=== PATIENT | male | born 1950 | race Caucasian/White ===

== ENCOUNTER 2020-04-22 11:20 | Inpatient (IN) | payer MEDICARE, OTHER ==
[~2020-04-22] VITALS: Ht 182.9 cm; Wt 87.9 kg
[~2020-04-22 11:20] MED LIST: ACET325T9 PO; BENZ0.5T32 PO; BUPR150T11 PO; CITA20TA6 PO; DIPH25CA58 PO; DOCU250C8 PO; GABA-585 PO; LEVO25TA4 PO; LORA0.5T PO; MAGN400O7 PO; OMEG1CAP6 PO; RISP3TAB3 PO; SIMV20TA18 PO
[2020-04-22 11:37] LABS: BASE EXCESS ABG 2 mmol/L (-3-3); HCO3 ABG 27 mmol/L (21-28); PCO2 ABG 47 mmHg (35-46); PO2 ABG 65 mmHg (65-108); SAT O2 ABG 93 % (92-99)
[2020-04-22 11:44] LABS: BASO # 0.1 x10^3/uL (0.0-0.2); BASO % 1 % (0-3); EOS # 0.5 x10^3/uL (0.0-0.7); EOS % 7 % (0-3); HEMATOCRIT 38.9 % (39.0-53.0); HEMOGLOBIN 13.1 g/dL (13.0-17.5); LYMPH # 0.8 x10^3/uL (1.0-4.8); LYMPH % 11 % (24-48); MEAN CORPUSCULAR HEMOGLOBIN 31 pg (25-35); MEAN CORPUSCULAR HGB CONC 34 g/dL (31-37); MEAN CORPUSCULAR VOLUME 91 fL (79-100); MONO # 0.6 x10^3/uL (0.0-1.1); MONO % 9 % (0-9); NEUT # 4.9 x10^3/uL (1.8-7.7); NEUT % 72 % (31-73); PLATELET COUNT 220 x10^3/uL (140-400); RED BLOOD COUNT 4.26 x10^6/uL (4.30-5.70); WHITE BLOOD COUNT 6.8 x10^3/uL (4.0-11.0)
[2020-04-22 11:53] LABS: CALCIUM 8.5 mg/dL (8.5-10.1); CREATININE 1.1 mg/dL (0.7-1.3); GFR 65.8; POTASSIUM 3.9 mmol/L (3.5-5.1)
--- NOTE | 2020-04-22 11:53 | RAD ---
EXAM: CT Head without IV contrast INDICATION: Reason: found unresponsive / Spl. Instructions: / History: TECHNIQUE: Multi-detector row CT images were obtained of the head without the use of IV contrast. All CT scans performed at this facility utilize dose optimization techniques as appropriate to the exam, including the following: Automated exposure control and adjustment of the mA and/or KV according to patient size (this includes techniques or standardized protocols for targeted exams where dose is indication/reason for exam). COMPARISON: None FINDINGS: BRAIN PARENCHYMA: No evidence of acute intraparenchymal hemorrhage or infarct. Generalized parenchymal volume loss and white matter low density compatible with chronic ischemic microvascular changes present. VENTRICLES & EXTRA-AXIAL SPACES: Ventricles are within normal limits. Basilar cisterns are patent. No pathologic extra-axial fluid collection or mass. ORBITS: Orbital contents are unremarkable. SINUSES: Visualized paranasal sinuses and mastoid air cells show polyp or mucous retention cyst in the left maxillary antrum but otherwise are well aerated.. OSSEOUS & SOFT TISSUES: Calvarium and skull base are intact. IMPRESSION: No acute intracranial pathology FOR INTERNAL CODING PURPOSES Critical result: Findings discussed with BRIDGETTE DANIEL at 04/22/2020 11:49 AM. RESULT CODE: (C) Electronically signed by: Aida Melgar MD (04/22/2020 11:50 AM) [id number]
[2020-04-22 11:54] LABS: PROTHROMBIN TIME PATIENT 12.8 SEC (11.7-14.0)
--- NOTE | 2020-04-22 11:57 | PHYS DOC ---
Past Medical History Past Medical History: COPD, High Cholesterol, Hypertension, Hypothyroid, Schizophrenia Past Surgical History: No Surgical History Additional Past Surgical Histo: HERNIA REPAIR Smoking Status: Unknown if ever smoked Alcohol Use: None Drug Use: None General Adult EDM: Chief Complaint: ALTERED MENTAL STATUS HPI: HPI: Patient is a 70 year old male who was brought here from residential due to altered mental status. Per residential report patient was doing okay this morning, they gave him his morning medication at 8 AM. They check on him later this afternoon and found him unresponsive in his bed but vomited on his chest. EMS were called, they gave him several doses of Narcan but patient did not respond. Patient was not responsive to verbal command however he was able to protect his airway with oxygen saturation above 98% on room air. There is no report of fever or cough. Patient was given BuSpar Celexa, Neurontin, lorazepam ,risperidone. Upon arrival to ER patient was unresponsive to verbal or painful stimuli, however he was able to protect his airway, his oxygen saturation about 96% on room air. Review of Systems: Review of Systems: Was not able to obtain. Due to condition Heart Score: Risk Factors: Risk Factors: DM, Current or recent (<one month) smoker, HTN, HLP, family history of CAD, obesity. Risk Scores: Score 0 - 3: 2.5% MACE over next 6 weeks - Discharge Home Score 4 - 6: 20.3% MACE over next 6 weeks - Admit for Clinical Observation Score 7 - 10: 72.7% MACE over next 6 weeks - Early Invasive Strategies Allergies: Allergies: Allergies Coded Allergies Type Severity Reaction Last Updated Verified Penicillins Allergy Intermediate 09/09/17 Yes Physical Exam: PE: Constitutional: Well developed, well nourished, unresponsive, vomitus materials around mouth and chest area. HENT: Normocephalic, atraumatic, bilateral external ears normal, food particles inside oral cavity. Eyes: PERRLA, EOMI, conjunctiva normal, no discharge. [] Neck: Normal range of motion, no tenderness, supple, no stridor. [] Cardiovascular:Heart rate regular rhythm, no murmur [] Lungs & Thorax: Bilateral breath sounds clear to auscultation [] Abdomen: Bowel sounds normal, soft, no tenderness, no masses, no pulsatile masses. [] Skin: Warm, dry, no erythema, no rash. [] Back: No tenderness, no CVA tenderness. [] Extremities: No tenderness, no cyanosis, no clubbing, ROM intact, no edema. [] Neurologic: somnolent, unresponsive to verbal or painful stimuli. Psychologic: not able to evaluate due to condition. Current Patient Data: Labs: Laboratory Tests Test 04/22/20 11:30 White Blood Count 6.8 x10^3/uL (4.0-11.0) Red Blood Count 4.26 x10^6/uL (4.30-5.70) L Hemoglobin 13.1 g/dL (13.0-17.5) Hematocrit 38.9 % (39.0-53.0) L Mean Corpuscular Volume 91 fL (79-100) Mean Corpuscular Hemoglobin 31 pg (25-35) Mean Corpuscular Hemoglobin Concent 34 g/dL (31-37) Red Cell Distribution Width 13.0 % (11.5-14.5) Platelet Count 220 x10^3/uL (140-400) Neutrophils (%) (Auto) 72 % (31-73) Lymphocytes (%) (Auto) 11 % (24-48) L Monocytes (%) (Auto) 9 % (0-9) Eosinophils (%) (Auto) 7 % (0-3) H Basophils (%) (Auto) 1 % (0-3) Neutrophils # (Auto) 4.9 x10^3/uL (1.8-7.7) Lymphocytes # (Auto) 0.8 x10^3/uL (1.0-4.8) L Monocytes # (Auto) 0.6 x10^3/uL (0.0-1.1) Eosinophils # (Auto) 0.5 x10^3/uL (0.0-0.7) Basophils # (Auto) 0.1 x10^3/uL (0.0-0.2) Prothrombin Time 12.8 SEC (11.7-14.0) Prothrombin Time INR 1.0 (0.8-1.1) Activated Partial Thromboplast Time 29 SEC (24-38) Laboratory Tests 04/22/20 11:30 EKG: EKG: EKG was done at 1142, heart rate of 90 bpm, normal sinus rhythm, no ST segment elevation, no ectopy, normal conduction. Radiology/Procedures: Radiology/Procedures: [facility] [address] [place] [address] IMAGING REPORT Signed PATIENT: VIKKI LEE ACCOUNT: [id number] : 1950 LOCATION: ER AGE: 70 SEX: M EXAM STATUS: PRE ER ORD. PHYSICIAN: BRIDGETTE DANIEL DO REASON: found unresponsive PROCEDURE: CT CODE STROKE HEAD WO EXAM: CT Head without IV contrast INDICATION: Reason: found unresponsive / Spl. Instructions: / History: TECHNIQUE: Multi-detector row CT images were obtained of the head without the use of IV contrast. All CT scans performed at this facility utilize dose optimization techniques as appropriate to the exam, including the following: Automated exposure control and adjustment of the mA and/or KV according to patient size (this includes techniques or standardized protocols for targeted exams where dose is indication/reason for exam). COMPARISON: None FINDINGS: BRAIN PARENCHYMA: No evidence of acute intraparenchymal hemorrhage or infarct. Generalized parenchymal volume loss and white matter low density compatible with chronic ischemic microvascular changes present. VENTRICLES & EXTRA-AXIAL SPACES: Ventricles are within normal limits. Basilar cisterns are patent. No pathologic extra-axial fluid collection or mass. ORBITS: Orbital contents are unremarkable. SINUSES: Visualized paranasal sinuses and mastoid air cells show polyp or mucous retention cyst in the left maxillary antrum but otherwise are well aerated.. OSSEOUS & SOFT TISSUES: Calvarium and skull base are intact. IMPRESSION: No acute intracranial pathology FOR INTERNAL CODING PURPOSES Critical result: Findings discussed with BRIDGETTE DANIEL at 04/22/2020 11:49 AM. RESULT CODE: (C) Electronically signed by: Carson Melgar MD (04/22/2020 11:50 AM) [id number] DICTATED and SIGNED BY: CARSON MELGAR MD DATE: 04/22/20 1150 [facility] [address] [place] [address] IMAGING REPORT Signed PATIENT: VIKKI LEE ACCOUNT: [id number] : 1950 LOCATION: ER AGE: 70 SEX: M EXAM STATUS: REG ER ORD. PHYSICIAN: BRIDGETTE DANIEL DO REASON: aspiration PROCEDURE: CHEST AP ONLY AP chest. HISTORY: Stroke, found unresponsive AP view was taken of the chest. Heart is normal in size. The aorta is mildly tortuous. Patient's not taken a deep inspiration. There is no effusion. There are no confluent infiltrates. IMPRESSION: 1. No acute infiltrates. Electronically signed by: Chilango Parekh MD (04/22/2020 12:23 PM) [id number] DICTATED and SIGNED BY: CHILANGO PAREKH MD DATE: 04/22/20 1223 Course & Med Decision Making: Course & Med Decision Making Pertinent Labs and Imaging studies reviewed. (See chart for details) Patient is a 70-year-old male who was sent here from residential due to altered mental status, it is suspected that patient accidentally overdosed on his medication. At the time of admission, patient became more awake alert and oriented to person. Dragon Disclaimer: Dragon Disclaimer: This electronic medical record was generated, in whole or in part, using a voice recognition dictation system. Departure Departure Impression: Primary Impression: AMS (altered mental status) Additional Impressions: UTI (urinary tract infection) Person under investigation for COVID-19 Accidental drug overdose Disposition: ADMITTED INPATIENT Admitting Physician: RANDEE (DR. GÓMEZ) Condition: IMPROVED Referrals: ANGELITA HUYNH (PCP) Justicifation of Admission Dx: Justifications for Admission: Justification of Admission Dx: Yes Altered Mental Status: Altered Mental Status BRIDGETTE DANIEL DO Apr 22, 2020 11:57
[2020-04-22 12:02] LABS: FIO2 ABG 21
[2020-04-22 12:06] LABS: FREE T4 1.12 ng/dL (0.76-1.46); THYROID STIM HORMONE (TSH) 1.859 uIU/mL (0.358-3.74)
[2020-04-22 12:08] LABS: ALBUMIN 3.2 g/dL (3.4-5.0); ALBUMIN/GLOBULIN RATIO 0.9 (1.0-1.7); MAGNESIUM 2.3 mg/dL (1.8-2.4); TOTAL BILIRUBIN 0.2 mg/dL (0.2-1.0); TOTAL PROTEIN 6.7 g/dL (6.4-8.2)
--- NOTE | 2020-04-22 12:14 | EKG ---
[facility] [address] [place] [address] Test Date: 2020-04-22 Test Time: 11:42:20 Pat Name: VIKKI LEE Department: Room: Gender: M [employer] Work[employer]: : 1950 Requested By: BRIDGETTE DANIEL Order Number: [id number] Reading MD: Measurements Intervals [place] Rate: 93 P: -17 IA: 186 QRS: -4 QRSD: 92 T: 42 QT: 358 QTc: 448 Interpretive Statements SINUS RHYTHM LEFTWARD AXIS NO SPECIFIC ECG ABNORMALITIES RI6.02 No previous ECG available for comparison
--- NOTE | 2020-04-22 12:26 | RAD ---
AP chest. HISTORY: Stroke, found unresponsive AP view was taken of the chest. Heart is normal in size. The aorta is mildly tortuous. Patient's not taken a deep inspiration. There is no effusion. There are no confluent infiltrates. IMPRESSION: 1. No acute infiltrates. Electronically signed by: Chilango Parekh MD (04/22/2020 12:23 PM) [id number]
[2020-04-22 12:46] LABS: AMPHETAMINE/METHAMPHETAMINE NEG (NEG); BARBITURATES NEG (NEG); BENZODIAZEPINES NEG (NEG); CANNABINOIDS NEG (NEG); COCAINE NEG (NEG); METHADONE NEG (NEG); OPIATES NEG (NEG); PHENCYCLIDINE NEG (NEG)
[2020-04-22 13:01] LABS: BILIRUBIN,URINE NEGATIVE (NEG); CLARITY,URINE CLOUDY; COLOR,URINE YELLOW; NITRITE,URINE POSITIVE (NEG); PROTEIN,URINE NEGATIVE (NEG-TRACE); UROBILINOGEN,URINE 0.2 mg/dL (0.2 mg/dL)
[2020-04-22 13:09] LABS: WBC,URINE TNTC /HPF (0-4)
[2020-04-22 13:10] LABS: AMORPHOUS SEDIMENT,UR PRESENT /HPF; BACTERIA,URINE FEW /HPF (0-FEW); SQUAMOUS EPITHELIAL CELL,UR OCC /LPF
--- NOTE | 2020-04-22 14:06 | PDOC1 ---
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 EMS noted pinpoint pupils on arrival, ems states administering 4mg intranasal narcan. Per nursing staff he took his morning medications at 8 am that included, resperidal, lorazepam, citalopram, and buproprion. Labs with no significant findings save for positive leukocyte esterase and positive nitrates in his urine. ABG with pH 7.38, PCO2 47, PO2 65 on room air. INR 1, PTT 29, TSH 1.85, albumin 3.2, mag 2.3, lactate 0.7, troponin 0, WBC 6.8, Hb 13.1, platelets 220, NA 138, K3.9, BUN 13, CR 1.1, glucose 121, LFTs within normal limits. UDS negative CT head and chest x-ray with no acute abnormalities EKG with rate 90 bpm, normal sinus rhythm, no ST segment elevation, no ectopy, normal conduction On my interview he is asleep but easily aroused. He knows he is in the hospital and is only oriented to person. He is asking why he is here. Asking if he can have something to eat. He does not recall vomiting. He denies any cough shortness of breath or chest pain. He does note some pain on initiating urination. 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. Due to concerns for COVID-19 nasal PCR swab was obtained in the ED. Admitted for further treatment. Past Medical History Cardiovascular: HTN, Hyperlipidemia Pulmonary: COPD CENTRAL NERVOUS SYSTEM: Other Psych: Schizophrenia Infectious disease: Other Renal/: Other Endocrine: Hypothyroidism Past Surgical History Past Surgical History: Hernia Repair Family History Family History Reviewed, he does not recall, thinks his mother had depression Family History: Other Social History Smoke: No ALCOHOL: none Drugs: None Current Medications Current Medications Current Medications Levofloxacin/ Dextrose 150 ml @ 100 mls/hr 1X ONCE IV Last administered on 04/22/20at 13:10; Start 04/22/20 at 12:30; Stop 04/22/20 at 13:59; Status DC Active Scripts Active Reported Tylenol (Acetaminophen) 325 Mg Tablet 2 Tab PO PRN Q6HRS PRN Simvastatin 20 Mg Tablet 1 Tab PO QHS Risperidone 3 Mg Tablet 1 Tab PO BID Milk Of Magnesia (Magnesium Hydroxide) 400 Mg/5 Ml Oral.susp 400 Mg PO DAILY PRN Lorazepam 0.5 Mg Tablet 1 Tab PO BID Levothyroxine Sodium 25 Mcg Tablet 1 Tab PO HS Gabapentin 100 Mg Capsule 200 Mg PO TID Fish Oil 1,000 Mg Capsule ([place]-3 Fatty Acids/Fish Oil) 1 Each Capsule 1 Each PO BID Docusate Sodium 250 Mg Capsule 250 Mg PO BID Citalopram Hbr (Citalopram Hydrobromide) 20 Mg Tablet 1 Tab PO DAILY Bupropion Hcl Sr (Bupropion Hcl) 150 Mg Tablet.er 150 Mg PO DAILY Benztropine Mesylate 0.5 Mg Tablet 1 Tab PO BID Benadryl (Diphenhydramine Hcl) 25 Mg Capsule 25 Mg PO Q4HRS PRN Levothyroxine Sodium 25 Mcg Tablet 1 Tab PO DAILY Allergies Allergies: Coded Allergies: Penicillins (Verified Allergy, Intermediate, 09/09/17) ROS Review of System Difficult to obtain due to circumferential and tangential thoughts General: No: Chills, Night Sweats, Fatigue, Malaise, Appetite, Other PSYCHOLOGICAL ROS: No: Anxiety, Behavioral Disorder, Concentration difficultie, Decreased libido, Depression, Disorientation, Hallucinations, Hostility, Irritablity, Memory difficulties, Mood Swings, Obsessive thoughts, Physical abuse, Sexual abuse, Sleep disturbances, Suicidal ideation, Other Eyes: No Blurry vision, No Decreased vision, No Double vision, No Dry eyes, No Excessive tearing, No Eye Pain, No Itchy Eyes, No Loss of vision, No Photophobia, No Scotomata, No Uses contacts, No Uses glasses, No Other HEENT: No: Heacaches, Visual Changes, Hearing change, Nasal congestion, Nasal discharge, Oral lesions, Sinus pain, Sore Throat, Epistaxis, Sneezing, Snoring, Tinnitus, Vertigo, Vocal changes, Other ALLERGY AND IMMUNOLOGY: No: Hives, Insect Bite Sensitivity, Itchy/Watery Eyes, Nasal Congestion, Post Nasal Drip, Seasonal Allergies, Other Hematological and Lymphatic: No: Bleeding Problems, Blood Clots, Blood Transfusions, Brusing, Night Sweats, Pallor, Swollen Lymph Nodes, Other ENDOCRINE: No: Breast Changes, Galactorrhea, Hair Pattern Changes, Hot Flashes, Malaise/lethargy, Mood Swings, Palpitations, Polydipsia/polyuria, Skin Changes, Temperature Intolerance, Unexpected Weight Changes, Other Breast: No New/Changing Breast Lumps, No Nipple changes, No Nipple discharge, No Other Respiratory: No: Cough, Hemoptysis, Orthopnea, Pleuritic Pain, Shortness of breath, SOB with excertion, Sputum Changes, Stridor, Tachypnea, Wheezing, Other Cardiovascular: No Chest Pain, No Palpitations, No Orthopnea, No Paroxysmal Noc. Dyspnea, No Edema, No Lt Headedness, No Other Gastrointestinal: No Nausea, No Vomiting, No Abdominal Pain, No Diarrhea, No Constipation, No Melena, No Hematochezia, No Other Genitourinary: No Dysuria, No Frequency, No Incontinence, No Hematuria, No Retention, No Discharge, No Urgency, No Pain, No Flank Pain, No Other, No , No , No , No , No , No , No Musculoskeletal: No Gait Disturbance, No Joint Pain, No Joint Stiffness, No Joint Swelling, No Muscle Pain, No Muscular Weakness, No Pain In:, No Swelling In:, No Other Neurological: No Behavorial Changes, No Bowel/Bladder ControlChng, No Confusion, No Dizziness, No Gait Disturbance, No Headaches, No Impaired Coord/balance, No Memory Loss, No Numbness/Tingling, No Seizures, No Speech Problems, No Tremors, No Visual Changes, No Weakness, No Other Skin: No Dry Skin, No Eczema, No Hair Changes, No Lumps, No Mole Changes, No Mottling, No Nail Changes, No Pruritus, No Rash, No Skin Lesion Changes, No Other, No Acne Physical Exam General: Cooperative, No acute distress, Other (Drowsy) HEENT: Atraumatic, PERRLA, EOMI, Mucous membr. moist/pink Lungs: Clear to auscultation, Normal air movement Heart: S1S2, RRR, no thrills, no rubs, no gallops, no murmurs Abdomen: Normal bowel sounds, Soft, No tenderness, No hepatosplenomegaly, No masses Male Genitals Exam: normal genitalia Rectal Exam: other (Enlarged prostate) Extremities: No clubbing, No cyanosis, No edema, Normal pulses, No tenderness/swelling Skin: No rashes, No breakdown, No significant lesion Neuro: Normal gait, Normal speech, Strength at 5/5 X4 ext, Normal tone, Sensation intact, Cranial nerves 3-12 NL, Reflexes 2+ Psych/Mental Status: Other (Happily confused) Vitals Vitals Vital Signs Date Time Temp Pulse Resp B/P (MAP) Pulse Ox O2 Delivery O2 Flow Rate FiO2 04/22/20 13:22 90 20 96 04/22/20 12:10 96.2 143/72 (95) Room Air 96.2 Labs Labs Laboratory Tests Test 04/22/20 11:28 04/22/20 11:30 04/22/20 11:55 O2 Saturation 93 % (92-99) Arterial Blood pH 7.38 (7.35-7.45) Arterial Blood pCO2 at Patient Temp 47 mmHg (35-46) Arterial Blood pO2 at Patient Temp 65 mmHg (65-108) Arterial Blood HCO3 27 mmol/L (21-28) Arterial Blood Base Excess 2 mmol/L (-3-3) FiO2 21 White Blood Count 6.8 x10^3/uL (4.0-11.0) Red Blood Count 4.26 x10^6/uL (4.30-5.70) Hemoglobin 13.1 g/dL (13.0-17.5) Hematocrit 38.9 % (39.0-53.0) Mean Corpuscular Volume 91 fL (79-100) Mean Corpuscular Hemoglobin 31 pg (25-35) Mean Corpuscular Hemoglobin Concent 34 g/dL (31-37) Red Cell Distribution Width 13.0 % (11.5-14.5) Platelet Count 220 x10^3/uL (140-400) Neutrophils (%) (Auto) 72 % (31-73) Lymphocytes (%) (Auto) 11 % (24-48) Monocytes (%) (Auto) 9 % (0-9) Eosinophils (%) (Auto) 7 % (0-3) Basophils (%) (Auto) 1 % (0-3) Neutrophils # (Auto) 4.9 x10^3/uL (1.8-7.7) Lymphocytes # (Auto) 0.8 x10^3/uL (1.0-4.8) Monocytes # (Auto) 0.6 x10^3/uL (0.0-1.1) Eosinophils # (Auto) 0.5 x10^3/uL (0.0-0.7) Basophils # (Auto) 0.1 x10^3/uL (0.0-0.2) Prothrombin Time 12.8 SEC (11.7-14.0) Prothromb Time International Ratio 1.0 (0.8-1.1) Activated Partial Thromboplast Time 29 SEC (24-38) Sodium Level 138 mmol/L (136-145) Potassium Level 3.9 mmol/L (3.5-5.1) Chloride Level 104 mmol/L (98-107) Carbon Dioxide Level 29 mmol/L (21-32) Anion Gap 5 (6-14) Blood Urea Nitrogen 13 mg/dL (8-26) Creatinine 1.1 mg/dL (0.7-1.3) Estimated GFR (Cockcroft-Gault) 65.8 BUN/Creatinine Ratio 12 (6-20) Glucose Level 121 mg/dL (70-99) Lactic Acid Level 0.7 mmol/L (0.4-2.0) Calcium Level 8.5 mg/dL (8.5-10.1) Magnesium Level 2.3 mg/dL (1.8-2.4) Total Bilirubin 0.2 mg/dL (0.2-1.0) Aspartate Amino Transf (AST/SGOT) 12 U/L (15-37) Alanine Aminotransferase (ALT/SGPT) 18 U/L (16-63) Alkaline Phosphatase 87 U/L (46-116) Troponin I Quantitative < 0.017 ng/mL (0.000-0.055) CL-Flj-A-Type Natriuretic Peptide 90 pg/mL (0-124) Total Protein 6.7 g/dL (6.4-8.2) Albumin 3.2 g/dL (3.4-5.0) Albumin/Globulin Ratio 0.9 (1.0-1.7) Thyroid Stimulating Hormone (TSH) 1.859 uIU/mL (0.358-3.74) Free Thyroxine 1.12 ng/dL (0.76-1.46) Urine Collection Type U cath Urine Color Yellow Urine Clarity Cloudy Urine pH 7.0 (<5.0-8.0) Urine Specific [place] 1.015 (1.000-1.030) Urine Protein Negative mg/dL (NEG-TRACE) Urine Glucose (UA) Negative mg/dL (NEG) Urine Ketones (Stick) Negative mg/dL (NEG) Urine Blood Trace (NEG) Urine Nitrite Positive (NEG) Urine Bilirubin Negative (NEG) Urine Urobilinogen Dipstick 0.2 mg/dL (0.2 mg/dL) Urine Leukocyte Esterase Large (NEG) Urine RBC 1-2 /HPF (0-2) Urine WBC Tntc /HPF (0-4) Urine Squamous Epithelial Cells Occ /LPF Urine Amorphous Sediment Present /HPF Urine Bacteria Few /HPF (0-FEW) Urine Opiates Screen Neg (NEG) Urine Methadone Screen Neg (NEG) Urine Barbiturates Neg (NEG) Urine Phencyclidine Screen Neg (NEG) Urine Amphetamine/Methamphetamine Neg (NEG) Urine Benzodiazepines Screen Neg (NEG) Urine Cocaine Screen Neg (NEG) Urine Cannabinoids Screen Neg (NEG) Urine Ethyl Alcohol Neg (NEG) Laboratory Tests Test 04/22/20 11:28 04/22/20 11:30 04/22/20 11:55 O2 Saturation 93 % (92-99) Arterial Blood pH 7.38 (7.35-7.45) Arterial Blood pCO2 at Patient Temp 47 mmHg (35-46) Arterial Blood pO2 at Patient Temp 65 mmHg (65-108) Arterial Blood HCO3 27 mmol/L (21-28) Arterial Blood Base Excess 2 mmol/L (-3-3) FiO2 21 White Blood Count 6.8 x10^3/uL (4.0-11.0) Red Blood Count 4.26 x10^6/uL (4.30-5.70) Hemoglobin 13.1 g/dL (13.0-17.5) Hematocrit 38.9 % (39.0-53.0) Mean Corpuscular Volume 91 fL (79-100) Mean Corpuscular Hemoglobin 31 pg (25-35) Mean Corpuscular Hemoglobin Concent 34 g/dL (31-37) Red Cell Distribution Width 13.0 % (11.5-14.5) Platelet Count 220 x10^3/uL (140-400) Neutrophils (%) (Auto) 72 % (31-73) Lymphocytes (%) (Auto) 11 % (24-48) Monocytes (%) (Auto) 9 % (0-9) Eosinophils (%) (Auto) 7 % (0-3) Basophils (%) (Auto) 1 % (0-3) Neutrophils # (Auto) 4.9 x10^3/uL (1.8-7.7) Lymphocytes # (Auto) 0.8 x10^3/uL (1.0-4.8) Monocytes # (Auto) 0.6 x10^3/uL (0.0-1.1) Eosinophils # (Auto) 0.5 x10^3/uL (0.0-0.7) Basophils # (Auto) 0.1 x10^3/uL (0.0-0.2) Prothrombin Time 12.8 SEC (11.7-14.0) Prothromb Time International Ratio 1.0 (0.8-1.1) Activated Partial Thromboplast Time 29 SEC (24-38) Sodium Level 138 mmol/L (136-145) Potassium Level 3.9 mmol/L (3.5-5.1) Chloride Level 104 mmol/L (98-107) Carbon Dioxide Level 29 mmol/L (21-32) Anion Gap 5 (6-14) Blood Urea Nitrogen 13 mg/dL (8-26) Creatinine 1.1 mg/dL (0.7-1.3) Estimated GFR (Cockcroft-Gault) 65.8 BUN/Creatinine Ratio 12 (6-20) Glucose Level 121 mg/dL (70-99) Lactic Acid Level 0.7 mmol/L (0.4-2.0) Calcium Level 8.5 mg/dL (8.5-10.1) Magnesium Level 2.3 mg/dL (1.8-2.4) Total Bilirubin 0.2 mg/dL (0.2-1.0) Aspartate Amino Transf (AST/SGOT) 12 U/L (15-37) Alanine Aminotransferase (ALT/SGPT) 18 U/L (16-63) Alkaline Phosphatase 87 U/L (46-116) Troponin I Quantitative < 0.017 ng/mL (0.000-0.055) YN-Zcn-B-Type Natriuretic Peptide 90 pg/mL (0-124) Total Protein 6.7 g/dL (6.4-8.2) Albumin 3.2 g/dL (3.4-5.0) Albumin/Globulin Ratio 0.9 (1.0-1.7) Thyroid Stimulating Hormone (TSH) 1.859 uIU/mL (0.358-3.74) Free Thyroxine 1.12 ng/dL (0.76-1.46) Urine Collection Type U cath Urine Color Yellow Urine Clarity Cloudy Urine pH 7.0 (<5.0-8.0) Urine Specific [place] 1.015 (1.000-1.030) Urine Protein Negative mg/dL (NEG-TRACE) Urine Glucose (UA) Negative mg/dL (NEG) Urine Ketones (Stick) Negative mg/dL (NEG) Urine Blood Trace (NEG) Urine Nitrite Positive (NEG) Urine Bilirubin Negative (NEG) Urine Urobilinogen Dipstick 0.2 mg/dL (0.2 mg/dL) Urine Leukocyte Esterase Large (NEG) Urine RBC 1-2 /HPF (0-2) Urine WBC Tntc /HPF (0-4) Urine Squamous Epithelial Cells Occ /LPF Urine Amorphous Sediment Present /HPF Urine Bacteria Few /HPF (0-FEW) Urine Opiates Screen Neg (NEG) Urine Methadone Screen Neg (NEG) Urine Barbiturates Neg (NEG) Urine Phencyclidine Screen Neg (NEG) Urine Amphetamine/Methamphetamine Neg (NEG) Urine Benzodiazepines Screen Neg (NEG) Urine Cocaine Screen Neg (NEG) Urine Cannabinoids Screen Neg (NEG) Urine Ethyl Alcohol Neg (NEG) Images Images CT Head w/o contrast: BRAIN PARENCHYMA: No evidence of acute intraparenchymal hemorrhage or infarct. Generalized parenchymal volume loss and white matter low density compatible with chronic ischemic microvascular changes present. VENTRICLES & EXTRA-AXIAL SPACES: Ventricles are within normal limits. Basilar cisterns are patent. No pathologic extra-axial fluid collection or mass. ORBITS: Orbital contents are unremarkable. SINUSES: Visualized paranasal sinuses and mastoid air cells show polyp or mucous retention cyst in the left maxillary antrum but otherwise are well aerated.. OSSEOUS & SOFT TISSUES: Calvarium and skull base are intact. IMPRESSION: No acute intracranial pathology CXR: AP view was taken of the chest. Heart is normal in size. The aorta is mildly tortuous. Patient's not taken a deep inspiration. There is no effusion. There are no confluent infiltrates. IMPRESSION: No acute infiltrates. VTE Prophylaxis Ordered VTE Prophylaxis Devices: Yes VTE Pharmacological Prophylaxi: Yes Assessment/Plan Assessment/Plan A/P: Acute encephalopathy - likely metabolic with medication and toxic due to UTI. will treat empirically and f/u urine culture. UDS interstingly negative despite scheduled outpatient ativan dosing, would suspect benzos to be found in urine. 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 - cogentin prn COPD - no current respiratory distress, if COVID 19 negative can have prn nebulizers COVID 19 suspected - will await testing results FEN - General diet PPX - lovenox FULL CODE Dispo - inpatient for at least 2 midnights Justifications for Admission Other Justification CLEMENTE GÓMEZ MD Apr 22, 2020 14:06
[2020-04-22] MEDS ORDERED: ONDANSETRON PF 4 MG/2 ML VIAL. IV PRN ×2 (14:45→16:30)
[2020-04-22] MEDS: IV NORMAL SALINE 1000ML BAG 1,000 ML IV SCH (15:27)
--- NOTE | 2020-04-22 15:30 | NUR ---
Patient arrived to room 674 around 1550 from ER. Patient alert. No complaints of pain. The patient, VIKKI LEE, 70 y/o, M admitted by CLEMENTE GÓMEZ MD, was given written information regarding hospital policies, unit procedures and contact persons. Valuables were checked and noted. Will continue to monitor.
[2020-04-22] MEDS ORDERED: ACETAMINOPHEN 325 MG TABLET. PO PRN (16:30)
[2020-04-22] MEDS ORDERED: ALBUTEROL SULFATE 2.5 MG/3 ML NEBU. NEB PRN (16:30)
[2020-04-22] MEDS ORDERED: diphenhydrAMINE 50 MG/ML VIAL IVP PRN (16:30)
[2020-04-22] MEDS ORDERED: AMAN100T PO (17:05)
[2020-04-22] MEDS ORDERED: CITA40TA12 PO (17:05)
[2020-04-22] MEDS ORDERED: TAMS0.4C97 PO (17:07)
[2020-04-22] MEDS ORDERED: IPRA0.2S5 NEB (17:08)
[2020-04-22] MEDS ORDERED: POLY17PO29 PO (17:10)
[2020-04-22] MEDS ORDERED: GUAI100L34 PO (17:11)
[2020-04-22] MEDS ORDERED: MAGNESIUM HYDROXIDE 2,400 MG/30 ML ORAL.SUSP. PO PRN (17:15)
[2020-04-22] MEDS ORDERED: LORazepam 0.5 MG TABLET PO PRN (17:15)
[2020-04-22] MEDS ORDERED: POLYETHYLENE GLYCOL 3350 17 GM PACKET. PO PRN (17:15)
[2020-04-22] MEDS ORDERED: guaiFENesin ORAL 200 MG/10 ML LIQUID. PO PRN (17:15)
[2020-04-22] MEDS ORDERED: IPRATROPIUM BROMIDE 0.5 MG/2.5 ML NEBU. NEB PRN (17:15)
--- NOTE | 2020-04-22 19:03 | PDOC1 ---
History & Psych Evaluation Date of Service: DOS: DATE: 04/22/20 TIME: 18:45 Source: Source: Caregiver, Chart review, Patient Identification: Identification 70-year-old gentleman with schizoaffective disorder. Chief Complaint: Chief Complaint Altered mental status, schizoaffective disorder, drug adjustment History of Present Illness: HPI: He is a 70-year-old gentleman [facility] with multiple medical comorbidities and schizoaffective disorder admitted with altered mental status.. He is on multiple psychotropics including risperidone, lorazepam, citalopram and bupropion. Seen for initial psychiatric assessment. Upon interview, he appears not very cooperative, irritable, and paranoid. Initially, states you are asking me the questions that I have been asked for many years. States, he is tired of giving answers. He appears paranoid with questioning and got irritable. He is delusional, thinks that story writer consider himself as "GOD". He continues to be mumbling, and irrelevant talk. At times appears disorganized and suspicious. He refused to answer questions or give irrelevant answers. Denies suicidal or homicidal thoughts. Did not answer to hallucination questions. He might be reacting to internal stimuli. Presentation is consistent with paranoid schizophrenia. Past Psychiatric History: History of paranoid schizophrenia. We will obtain collateral information to see the longitudinal course of illness and prior diagnosis. 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 He denies illicit substance use or alcohol abuse. Current Medications: Current Medications Current Medications Medications (Trade) Dose Ordered Sig/Renata Start Time Stop Time Status Last Admin Dose Admin Acetaminophen (Tylenol) 650 mg PRN Q4HRS PRN 04/22/20 16:30 Albuterol Sulfate (Ventolin Neb Soln) 2.5 mg PRN Q4HRS PRN 04/22/20 16:30 Bupropion HCl (Wellbutrin Sr) 150 mg DAILY 04/23/20 09:00 Citalopram Hydrobromide (CeleXA) 40 mg DAILY 04/23/20 09:00 Diphenhydramine HCl (Benadryl) 25 mg PRN Q4HRS PRN 04/22/20 16:30 Docusate Sodium (Colace) 100 mg BID 04/22/20 21:00 Enoxaparin Sodium (Lovenox 40mg Syringe) 40 mg Q24H 04/22/20 21:00 Fish Oil (Fish Oil) 1,000 mg BID 04/22/20 21:00 Gabapentin (Neurontin) 200 mg TID 04/22/20 21:00 Guaifenesin (Robitussin) 100 mg PRN QID PRN 04/22/20 17:15 Ipratropium [place] (Atrovent) 2.5 mg PRN Q4HRS PRN 04/22/20 17:15 Levofloxacin/ Dextrose 50 ml @ 33.333 mls/ hr Q24H 04/23/20 13:00 Levothyroxine Sodium (Synthroid) 25 mcg HS 04/22/20 21:00 Lorazepam (Ativan) 0.5 mg PRN BID PRN 04/22/20 17:15 Magnesium Hydroxide (Milk Of Magnesia) 2,400 mg PRN DAILY PRN 04/22/20 17:15 Ondansetron HCl (Zofran) 4 mg PRN Q4HRS PRN 04/22/20 16:30 Polyethylene Glycol (miraLAX PACKET) 17 gm PRN DAILY PRN 04/22/20 17:15 Risperidone (RisperDAL) 3 mg BID 04/22/20 21:00 Simvastatin (Zocor) 20 mg QHS 04/22/20 21:00 Sodium Chloride 1,000 ml @ 75 mls/hr [id number] 04/22/20 14:37 04/23/20 14:36 04/22/20 15:27 75 MLS/HR Tamsulosin HCl (Flomax) 0.4 mg HS 04/22/20 21:00 Allergies: Allergies: Coded Allergies: Penicillins (Verified Allergy, Intermediate, 09/09/17) Mental Status Examination: Mental Status Examination Elderly gentleman appears as a stated age Uncooperative and dysphoric Disoriented Thought processes disorganized Refused to answer to auditory or visual hallucinations. He is paranoid. Denies suicidal or homicidal thoughts. Mood is dysphoric Affect is dysthymic Insight is poor Judgment is poor Impulse control is poor Attention span and concentration impaired Recent and remote memory impaired ROS: 14 point review of system is otherwise negative except for stated above. Physical Exam: Refer to Physician's note. 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 OPERATOR: No focal deficit MSK: No EPS, TDK, or abnormal involuntary movements Vitals: Vitals Vital Signs Date Time Temp Pulse Resp B/P (MAP) Pulse Ox O2 Delivery O2 Flow Rate FiO2 04/22/20 14:52 88 16 96 04/22/20 12:10 96.2 143/72 (95) Room Air 96.2 Labs: Labs Laboratory Tests Test 04/22/20 11:28 04/22/20 11:30 04/22/20 11:55 O2 Saturation 93 % (92-99) Arterial Blood pH 7.38 (7.35-7.45) Arterial Blood pCO2 at Patient Temp 47 mmHg (35-46) Arterial Blood pO2 at Patient Temp 65 mmHg (65-108) Arterial Blood HCO3 27 mmol/L (21-28) Arterial Blood Base Excess 2 mmol/L (-3-3) FiO2 21 White Blood Count 6.8 x10^3/uL (4.0-11.0) Red Blood Count 4.26 x10^6/uL (4.30-5.70) Hemoglobin 13.1 g/dL (13.0-17.5) Hematocrit 38.9 % (39.0-53.0) Mean Corpuscular Volume 91 fL (79-100) Mean Corpuscular Hemoglobin 31 pg (25-35) Mean Corpuscular Hemoglobin Concent 34 g/dL (31-37) Red Cell Distribution Width 13.0 % (11.5-14.5) Platelet Count 220 x10^3/uL (140-400) Neutrophils (%) (Auto) 72 % (31-73) Lymphocytes (%) (Auto) 11 % (24-48) Monocytes (%) (Auto) 9 % (0-9) Eosinophils (%) (Auto) 7 % (0-3) Basophils (%) (Auto) 1 % (0-3) Neutrophils # (Auto) 4.9 x10^3/uL (1.8-7.7) Lymphocytes # (Auto) 0.8 x10^3/uL (1.0-4.8) Monocytes # (Auto) 0.6 x10^3/uL (0.0-1.1) Eosinophils # (Auto) 0.5 x10^3/uL (0.0-0.7) Basophils # (Auto) 0.1 x10^3/uL (0.0-0.2) Prothrombin Time 12.8 SEC (11.7-14.0) Prothromb Time International Ratio 1.0 (0.8-1.1) Activated Partial Thromboplast Time 29 SEC (24-38) Sodium Level 138 mmol/L (136-145) Potassium Level 3.9 mmol/L (3.5-5.1) Chloride Level 104 mmol/L (98-107) Carbon Dioxide Level 29 mmol/L (21-32) Anion Gap 5 (6-14) Blood Urea Nitrogen 13 mg/dL (8-26) Creatinine 1.1 mg/dL (0.7-1.3) Estimated GFR (Cockcroft-Gault) 65.8 BUN/Creatinine Ratio 12 (6-20) Glucose Level 121 mg/dL (70-99) Lactic Acid Level 0.7 mmol/L (0.4-2.0) Calcium Level 8.5 mg/dL (8.5-10.1) Magnesium Level 2.3 mg/dL (1.8-2.4) Total Bilirubin 0.2 mg/dL (0.2-1.0) Aspartate Amino Transf (AST/SGOT) 12 U/L (15-37) Alanine Aminotransferase (ALT/SGPT) 18 U/L (16-63) Alkaline Phosphatase 87 U/L (46-116) Troponin I Quantitative < 0.017 ng/mL (0.000-0.055) C-Reactive Protein, Quantitative 2.1 mg/L (0-3.3) JS-Wmo-G-Type Natriuretic Peptide 90 pg/mL (0-124) Total Protein 6.7 g/dL (6.4-8.2) Albumin 3.2 g/dL (3.4-5.0) Albumin/Globulin Ratio 0.9 (1.0-1.7) Procalcitonin < 0.10 ng/mL (0.00-0.10) Thyroid Stimulating Hormone (TSH) 1.859 uIU/mL (0.358-3.74) Free Thyroxine 1.12 ng/dL (0.76-1.46) Urine Collection Type U cath Urine Color Yellow Urine Clarity Cloudy Urine pH 7.0 (<5.0-8.0) Urine Specific [place] 1.015 (1.000-1.030) Urine Protein Negative mg/dL (NEG-TRACE) Urine Glucose (UA) Negative mg/dL (NEG) Urine Ketones (Stick) Negative mg/dL (NEG) Urine Blood Trace (NEG) Urine Nitrite Positive (NEG) Urine Bilirubin Negative (NEG) Urine Urobilinogen Dipstick 0.2 mg/dL (0.2 mg/dL) Urine Leukocyte Esterase Large (NEG) Urine RBC 1-2 /HPF (0-2) Urine WBC Tntc /HPF (0-4) Urine Squamous Epithelial Cells Occ /LPF Urine Amorphous Sediment Present /HPF Urine Bacteria Few /HPF (0-FEW) Urine Opiates Screen Neg (NEG) Urine Methadone Screen Neg (NEG) Urine Barbiturates Neg (NEG) Urine Phencyclidine Screen Neg (NEG) Urine Amphetamine/Methamphetamine Neg (NEG) Urine Benzodiazepines Screen Neg (NEG) Urine Cocaine Screen Neg (NEG) Urine Cannabinoids Screen Neg (NEG) Urine Ethyl Alcohol Neg (NEG) Laboratory Tests Test 04/22/20 11:28 04/22/20 11:30 04/22/20 11:55 O2 Saturation 93 % (92-99) Arterial Blood pH 7.38 (7.35-7.45) Arterial Blood pCO2 at Patient Temp 47 mmHg (35-46) Arterial Blood pO2 at Patient Temp 65 mmHg (65-108) Arterial Blood HCO3 27 mmol/L (21-28) Arterial Blood Base Excess 2 mmol/L (-3-3) FiO2 21 White Blood Count 6.8 x10^3/uL (4.0-11.0) Red Blood Count 4.26 x10^6/uL (4.30-5.70) Hemoglobin 13.1 g/dL (13.0-17.5) Hematocrit 38.9 % (39.0-53.0) Mean Corpuscular Volume 91 fL (79-100) Mean Corpuscular Hemoglobin 31 pg (25-35) Mean Corpuscular Hemoglobin Concent 34 g/dL (31-37) Red Cell Distribution Width 13.0 % (11.5-14.5) Platelet Count 220 x10^3/uL (140-400) Neutrophils (%) (Auto) 72 % (31-73) Lymphocytes (%) (Auto) 11 % (24-48) Monocytes (%) (Auto) 9 % (0-9) Eosinophils (%) (Auto) 7 % (0-3) Basophils (%) (Auto) 1 % (0-3) Neutrophils # (Auto) 4.9 x10^3/uL (1.8-7.7) Lymphocytes # (Auto) 0.8 x10^3/uL (1.0-4.8) Monocytes # (Auto) 0.6 x10^3/uL (0.0-1.1) Eosinophils # (Auto) 0.5 x10^3/uL (0.0-0.7) Basophils # (Auto) 0.1 x10^3/uL (0.0-0.2) Prothrombin Time 12.8 SEC (11.7-14.0) Prothromb Time International Ratio 1.0 (0.8-1.1) Activated Partial Thromboplast Time 29 SEC (24-38) Sodium Level 138 mmol/L (136-145) Potassium Level 3.9 mmol/L (3.5-5.1) Chloride Level 104 mmol/L (98-107) Carbon Dioxide Level 29 mmol/L (21-32) Anion Gap 5 (6-14) Blood Urea Nitrogen 13 mg/dL (8-26) Creatinine 1.1 mg/dL (0.7-1.3) Estimated GFR (Cockcroft-Gault) 65.8 BUN/Creatinine Ratio 12 (6-20) Glucose Level 121 mg/dL (70-99) Lactic Acid Level 0.7 mmol/L (0.4-2.0) Calcium Level 8.5 mg/dL (8.5-10.1) Magnesium Level 2.3 mg/dL (1.8-2.4) Total Bilirubin 0.2 mg/dL (0.2-1.0) Aspartate Amino Transf (AST/SGOT) 12 U/L (15-37) Alanine Aminotransferase (ALT/SGPT) 18 U/L (16-63) Alkaline Phosphatase 87 U/L (46-116) Troponin I Quantitative < 0.017 ng/mL (0.000-0.055) C-Reactive Protein, Quantitative 2.1 mg/L (0-3.3) OW-Flp-R-Type Natriuretic Peptide 90 pg/mL (0-124) Total Protein 6.7 g/dL (6.4-8.2) Albumin 3.2 g/dL (3.4-5.0) Albumin/Globulin Ratio 0.9 (1.0-1.7) Procalcitonin < 0.10 ng/mL (0.00-0.10) Thyroid Stimulating Hormone (TSH) 1.859 uIU/mL (0.358-3.74) Free Thyroxine 1.12 ng/dL (0.76-1.46) Urine Collection Type U cath Urine Color Yellow Urine Clarity Cloudy Urine pH 7.0 (<5.0-8.0) Urine Specific [place] 1.015 (1.000-1.030) Urine Protein Negative mg/dL (NEG-TRACE) Urine Glucose (UA) Negative mg/dL (NEG) Urine Ketones (Stick) Negative mg/dL (NEG) Urine Blood Trace (NEG) Urine Nitrite Positive (NEG) Urine Bilirubin Negative (NEG) Urine Urobilinogen Dipstick 0.2 mg/dL (0.2 mg/dL) Urine Leukocyte Esterase Large (NEG) Urine RBC 1-2 /HPF (0-2) Urine WBC Tntc /HPF (0-4) Urine Squamous Epithelial Cells Occ /LPF Urine Amorphous Sediment Present /HPF Urine Bacteria Few /HPF (0-FEW) Urine Opiates Screen Neg (NEG) Urine Methadone Screen Neg (NEG) Urine Barbiturates Neg (NEG) Urine Phencyclidine Screen Neg (NEG) Urine Amphetamine/Methamphetamine Neg (NEG) Urine Benzodiazepines Screen Neg (NEG) Urine Cocaine Screen Neg (NEG) Urine Cannabinoids Screen Neg (NEG) Urine Ethyl Alcohol Neg (NEG) Diagnosis: Diagnosis: Paranoid schizophrenia Schizoaffective disorder by history Acute delirium likely mixed hyperactive and hypoactive, multifactorial Assessment: He is a 70-year-old gentleman resident [facility] a [facility] with prior diagnoses of schizophrenia spectrum disorder. He is delirious and with decompensated psychosis requiring to restart his medications. He can be restarted on risperidone and Celexa which needs to be replaced with Zoloft which is safer than Celexa and elderly population. Due to ongoing psychosis would avoid bupropion at this point. Plan: Restart risperidone 1 mg twice daily for psychosis. Risperidone would also help in resolution of delirium. Collateral information would help with a longer treatment course and baseline status of psychosis and mental status. Risk, benefits, alternatives are explained. Monitor closely for psychosis, symptomatology, safety, and adverse drug reaction. Will adjust medications accordingly. Thank you for involving inpatient care LUCILLE BUSBY MD Apr 22, 2020 19:03
[2020-04-22 19:56] VITALS: BP 139/78
[2020-04-22] MEDS: LEVOTHYROXINE 25 MCG TABLET. PO SCH (20:22)
[2020-04-22] MEDS: ENOXAPARIN 40 MG/0.4 ML SYRINGE. SQ SCH ×2 (20:22→20:43)
[2020-04-22] MEDS: TAMSULOSIN 0.4 MG CAP.ER.24H. PO SCH (20:22)
[2020-04-22] MEDS: GABAPENTIN 100 MG CAPSULE. PO SCH (20:22)
[2020-04-22] MEDS: DOCUSATE SODIUM 100 MG CAPSULE. PO SCH (20:23)
[2020-04-22] MEDS: OMEGA-3 FATTY ACIDS/FISH OIL 1,000 MG CAPSULE. PO SCH (20:23)
[2020-04-22] MEDS: SIMVASTATIN 20 MG TABLET PO SCH (20:23)
[2020-04-22] MEDS: risperiDONE 1 MG TABLET. PO SCH ×2 (20:23→20:29)
--- NOTE | 2020-04-22 21:33 | NUR ---
Held Risperidone 3mg. Attempted to call Dr. Arzola, no answer, left message to clarify risperidone order since there was a duplicate order in place for both 1 mg and 3 mg Risperidone BID. No call back received. Per Dr. Castillo note gave patient 1 mg and will follow up tomorrow with Dr. Arzola to clarify order. Pt refused Lovenox. Will continue to monitor patient.
[2020-04-22 23:42] VITALS: BP 155/97
[2020-04-23] MEDS: IV NORMAL SALINE 1000ML BAG 1,000 ML IV SCH (02:01)
[2020-04-23 03:39] VITALS: BP 165/94
[2020-04-23 05:55] LABS: CALCIUM 8.1 mg/dL (8.5-10.1); CREATININE 1.2 mg/dL (0.7-1.3); GFR 59.5; POTASSIUM 3.8 mmol/L (3.5-5.1)
[2020-04-23 06:11] LABS: BASO % 0 % (0-3); EOS # 0.5 x10^3/uL (0.0-0.7); EOS % 6 % (0-3); HEMATOCRIT 39.5 % (39.0-53.0); HEMOGLOBIN 13.1 g/dL (13.0-17.5); LYMPH % 12 % (24-48); MEAN CORPUSCULAR HEMOGLOBIN 31 pg (25-35); MEAN CORPUSCULAR HGB CONC 33 g/dL (31-37); MEAN CORPUSCULAR VOLUME 92 fL (79-100); MONO # 0.8 x10^3/uL (0.0-1.1); MONO % 9 % (0-9); NEUT # 6.5 x10^3/uL (1.8-7.7); NEUT % 73 % (31-73); PLATELET COUNT 210 x10^3/uL (140-400); RED BLOOD COUNT 4.29 x10^6/uL (4.30-5.70); RED CELL DISTRIBUTION WIDTH 13.3 % (11.5-14.5); WHITE BLOOD COUNT 8.8 x10^3/uL (4.0-11.0)
[2020-04-23 07:00] VITALS: BP 151/80
[2020-04-23] MEDS: risperiDONE 1 MG TABLET. PO SCH ×4 (09:00→20:42)
--- NOTE | 2020-04-23 10:16 | PDOC ---
[employer] PROGRESS NOTE Date of Service DOS: DATE: 04/23/20 TIME: 10:15 Chief Complaint Chief Complaint A/P: Acute encephalopathy - likely metabolic with medication and toxic due to UTI. will treat empirically and f/u urine culture. UDS interstingly negative despite scheduled outpatient ativan dosing, would suspect benzos to be found in urine. 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 - cogentin prn COPD - no current respiratory distress, if COVID 19 negative can have prn nebulizers COVID 19 suspected - will await testing results FEN - General diet PPX - lovenox FULL CODE Dispo - inpatient for at least 2 midnights History of Present Illness History of Present Illness 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 EMS noted pinpoint pupils on arrival, ems states administering 4mg intranasal narcan. Per nursing staff he took his morning medications at 8 am that included, resperidal, lorazepam, citalopram, and buproprion. Labs with no significant findings save for positive leukocyte esterase and positive nitrates in his urine. ABG with pH 7.38, PCO2 47, PO2 65 on room air. INR 1, PTT 29, TSH 1.85, albumin 3.2, mag 2.3, lactate 0.7, troponin 0, WBC 6.8, Hb 13.1, platelets 220, NA 138, K3.9, BUN 13, CR 1.1, glucose 121, LFTs within normal limits. UDS negative CT head and chest x-ray with no acute abnormalities EKG with rate 90 bpm, normal sinus rhythm, no ST segment elevation, no ectopy, normal conduction On my interview he is asleep but easily aroused. He knows he is in the hospital and is only oriented to person. He is asking why he is here. Asking if he can have something to eat. He does not recall vomiting. He denies any cough shortness of breath or chest pain. He does note some pain on initiating urination. When asked about advanced directives and power of contract attorney he notes he has a sister who lives in [place] but does not think the loss they are applying the [facility]. Due to concerns for COVID-19 nasal PCR swab was obtained in the ED. Admitted for further treatment. COVID 19 negative He is wondering why he is here. Afebrile. Awaiting urine culture. He does feel better. He is in good spirits. He has refused some of his medications but is amenable to taking them. Easily redirected. Oriented to person only currently. Vitals/I&O Vitals/I&O: Vital Signs Date Time Temp Pulse Resp B/P (MAP) Pulse Ox O2 Delivery O2 Flow Rate FiO2 04/23/20 03:39 80 20 165/94 (117) 98 Room Air 04/22/20 23:42 98.1 98.1 I & O 04/22/20 04/22/20 04/23/20 15:00 23:00 07:00 Intake Total 150 ml 220 ml Balance 150 ml 220 ml Physical Exam General: Cooperative, No acute distress, Other (Drowsy) Lungs: Clear, Crackles, Other Abdomen: Normal bowel sounds, Soft, No tenderness, No hepatosplenomegaly, No masses Extremities: No clubbing, No cyanosis, No edema, Normal pulses, No tenderness/swelling Skin: No rashes, No breakdown, No significant lesion Labs Labs: Laboratory Tests Test 04/22/20 11:28 04/22/20 11:30 04/22/20 11:55 04/22/20 13:07 O2 Saturation 93 % (92-99) Arterial Blood pH 7.38 (7.35-7.45) Arterial Blood pCO2 at Patient Temp 47 mmHg (35-46) Arterial Blood pO2 at Patient Temp 65 mmHg (65-108) Arterial Blood HCO3 27 mmol/L (21-28) Arterial Blood Base Excess 2 mmol/L (-3-3) FiO2 21 White Blood Count 6.8 x10^3/uL (4.0-11.0) Red Blood Count 4.26 x10^6/uL (4.30-5.70) Hemoglobin 13.1 g/dL (13.0-17.5) Hematocrit 38.9 % (39.0-53.0) Mean Corpuscular Volume 91 fL (79-100) Mean Corpuscular Hemoglobin 31 pg (25-35) Mean Corpuscular Hemoglobin Concent 34 g/dL (31-37) Red Cell Distribution Width 13.0 % (11.5-14.5) Platelet Count 220 x10^3/uL (140-400) Neutrophils (%) (Auto) 72 % (31-73) Lymphocytes (%) (Auto) 11 % (24-48) Monocytes (%) (Auto) 9 % (0-9) Eosinophils (%) (Auto) 7 % (0-3) Basophils (%) (Auto) 1 % (0-3) Neutrophils # (Auto) 4.9 x10^3/uL (1.8-7.7) Lymphocytes # (Auto) 0.8 x10^3/uL (1.0-4.8) Monocytes # (Auto) 0.6 x10^3/uL (0.0-1.1) Eosinophils # (Auto) 0.5 x10^3/uL (0.0-0.7) Basophils # (Auto) 0.1 x10^3/uL (0.0-0.2) Prothrombin Time 12.8 SEC (11.7-14.0) Prothromb Time International Ratio 1.0 (0.8-1.1) Activated Partial Thromboplast Time 29 SEC (24-38) Sodium Level 138 mmol/L (136-145) Potassium Level 3.9 mmol/L (3.5-5.1) Chloride Level 104 mmol/L (98-107) Carbon Dioxide Level 29 mmol/L (21-32) Anion Gap 5 (6-14) Blood Urea Nitrogen 13 mg/dL (8-26) Creatinine 1.1 mg/dL (0.7-1.3) Estimated GFR (Cockcroft-Gault) 65.8 BUN/Creatinine Ratio 12 (6-20) Glucose Level 121 mg/dL (70-99) Lactic Acid Level 0.7 mmol/L (0.4-2.0) Calcium Level 8.5 mg/dL (8.5-10.1) Magnesium Level 2.3 mg/dL (1.8-2.4) Total Bilirubin 0.2 mg/dL (0.2-1.0) Aspartate Amino Transf (AST/SGOT) 12 U/L (15-37) Alanine Aminotransferase (ALT/SGPT) 18 U/L (16-63) Alkaline Phosphatase 87 U/L (46-116) Troponin I Quantitative < 0.017 ng/mL (0.000-0.055) C-Reactive Protein, Quantitative 2.1 mg/L (0-3.3) IA-Yyw-Z-Type Natriuretic Peptide 90 pg/mL (0-124) Total Protein 6.7 g/dL (6.4-8.2) Albumin 3.2 g/dL (3.4-5.0) Albumin/Globulin Ratio 0.9 (1.0-1.7) Procalcitonin < 0.10 ng/mL (0.00-0.10) Thyroid Stimulating Hormone (TSH) 1.859 uIU/mL (0.358-3.74) Free Thyroxine 1.12 ng/dL (0.76-1.46) Urine Collection Type U cath Urine Color Yellow Urine Clarity Cloudy Urine pH 7.0 (<5.0-8.0) Urine Specific [place] 1.015 (1.000-1.030) Urine Protein Negative mg/dL (NEG-TRACE) Urine Glucose (UA) Negative mg/dL (NEG) Urine Ketones (Stick) Negative mg/dL (NEG) Urine Blood Trace (NEG) Urine Nitrite Positive (NEG) Urine Bilirubin Negative (NEG) Urine Urobilinogen Dipstick 0.2 mg/dL (0.2 mg/dL) Urine Leukocyte Esterase Large (NEG) Urine RBC 1-2 /HPF (0-2) Urine WBC Tntc /HPF (0-4) Urine Squamous Epithelial Cells Occ /LPF Urine Amorphous Sediment Present /HPF Urine Bacteria Few /HPF (0-FEW) Urine Opiates Screen Neg (NEG) Urine Methadone Screen Neg (NEG) Urine Barbiturates Neg (NEG) Urine Phencyclidine Screen Neg (NEG) Urine Amphetamine/Methamphetamine Neg (NEG) Urine Benzodiazepines Screen Neg (NEG) Urine Cocaine Screen Neg (NEG) Urine Cannabinoids Screen Neg (NEG) Urine Ethyl Alcohol Neg (NEG) Coronavirus (PCR) Not detected (Not Detected) Test 9/2/20 05:05 White Blood Count 8.8 x10^3/uL (4.0-11.0) Red Blood Count 4.29 x10^6/uL (4.30-5.70) Hemoglobin 13.1 g/dL (13.0-17.5) Hematocrit 39.5 % (39.0-53.0) Mean Corpuscular Volume 92 fL (79-100) Mean Corpuscular Hemoglobin 31 pg (25-35) Mean Corpuscular Hemoglobin Concent 33 g/dL (31-37) Red Cell Distribution Width 13.3 % (11.5-14.5) Platelet Count 210 x10^3/uL (140-400) Neutrophils (%) (Auto) 73 % (31-73) Lymphocytes (%) (Auto) 12 % (24-48) Monocytes (%) (Auto) 9 % (0-9) Eosinophils (%) (Auto) 6 % (0-3) Basophils (%) (Auto) 0 % (0-3) Neutrophils # (Auto) 6.5 x10^3/uL (1.8-7.7) Lymphocytes # (Auto) 1.0 x10^3/uL (1.0-4.8) Monocytes # (Auto) 0.8 x10^3/uL (0.0-1.1) Eosinophils # (Auto) 0.5 x10^3/uL (0.0-0.7) Basophils # (Auto) 0.0 x10^3/uL (0.0-0.2) Sodium Level 143 mmol/L (136-145) Potassium Level 3.8 mmol/L (3.5-5.1) Chloride Level 105 mmol/L (98-107) Carbon Dioxide Level 30 mmol/L (21-32) Anion Gap 8 (6-14) Blood Urea Nitrogen 11 mg/dL (8-26) Creatinine 1.2 mg/dL (0.7-1.3) Estimated GFR (Cockcroft-Gault) 59.5 Glucose Level 107 mg/dL (70-99) Calcium Level 8.1 mg/dL (8.5-10.1) Assessment and Plan Assessmemt and Plan Problems Medical Problems: (1) Accidental drug overdose Status: Acute (2) AMS (altered mental status) Status: Acute (3) Person under investigation for COVID-19 Status: Acute (4) UTI (urinary tract infection) Status: Acute Comment Review of Relevant I have reviewed the following items alberto (where applicable) has been applied. Medications: Current Medications Medications (Trade) Dose Ordered Sig/Renaat Route PRN Reason Start Time Stop Time Status Last Admin Dose Admin Levofloxacin/ Dextrose 150 ml @ 100 mls/hr 1X ONCE IV 04/22/20 12:30 04/22/20 13:59 DC 04/22/20 13:10 Sodium Chloride 1,000 ml @ 75 mls/hr [id number] IV 04/22/20 14:37 04/23/20 14:36 04/23/20 02:01 Gabapentin (Neurontin) 200 mg TID PO 04/22/20 21:00 04/22/20 20:22 Levothyroxine Sodium (Synthroid) 25 mcg HS PO 04/22/20 21:00 04/22/20 20:22 Fish Oil (Fish Oil) 1,000 mg BID PO 04/22/20 21:00 04/22/20 20:23 Simvastatin (Zocor) 20 mg QHS PO 04/22/20 21:00 04/22/20 20:23 Tamsulosin HCl (Flomax) 0.4 mg HS PO 04/22/20 21:00 04/22/20 20:22 Docusate Sodium (Colace) 100 mg BID PO 04/22/20 21:00 04/22/20 20:23 Risperidone (RisperDAL) 1 mg BID PO 04/22/20 21:00 04/22/20 20:23 Justifications for Admission Other Justification CLEMENTE GÓMEZ MD Apr 23, 2020 10:16
[2020-04-23] MEDS: DOCUSATE SODIUM 100 MG CAPSULE. PO SCH ×2 (10:23→20:42)
[2020-04-23] MEDS: buPROPion SR 150 MG TABLET.SA PO SCH (10:23)
[2020-04-23] MEDS: SERTRALINE 50 MG TABLET. PO SCH (10:24)
[2020-04-23] MEDS: GABAPENTIN 100 MG CAPSULE. PO SCH ×3 (10:24→20:41)
[2020-04-23] MEDS: CITALOPRAM 20 MG TABLET. PO SCH (10:24)
[2020-04-23] MEDS: OMEGA-3 FATTY ACIDS/FISH OIL 1,000 MG CAPSULE. PO SCH ×2 (10:24→20:42)
[2020-04-23 15:00] VITALS: BP 147/93
--- NOTE | 2020-04-23 17:29 | PDOC ---
F/U PHYSCH PROG NOTE Subjective: He is a 70-year-old gentleman resident of group home facility with multiple medical comorbidities and schizoaffective disorder admitted with altered mental status. He is full alert and oriented today. No agitation and irritability noted. He is pleasant and interactive. Denies Si or HI. Denies AVH. Objective: !4 point review of system is negative except for stated above Vital Signs: Vital Signs Date Time Temp Pulse Resp B/P (MAP) Pulse Ox O2 Delivery O2 Flow Rate FiO2 04/23/20 15:00 97.5 82 147/93 (111) 93 Room Air 97.5 04/23/20 03:39 20 Labs: Laboratory Tests Test 04/23/20 05:05 White Blood Count 8.8 x10^3/uL (4.0-11.0) Red Blood Count 4.29 x10^6/uL (4.30-5.70) L Hemoglobin 13.1 g/dL (13.0-17.5) Hematocrit 39.5 % (39.0-53.0) Mean Corpuscular Volume 92 fL (79-100) Mean Corpuscular Hemoglobin 31 pg (25-35) Mean Corpuscular Hemoglobin Concent 33 g/dL (31-37) Red Cell Distribution Width 13.3 % (11.5-14.5) Platelet Count 210 x10^3/uL (140-400) Neutrophils (%) (Auto) 73 % (31-73) Lymphocytes (%) (Auto) 12 % (24-48) L Monocytes (%) (Auto) 9 % (0-9) Eosinophils (%) (Auto) 6 % (0-3) H Basophils (%) (Auto) 0 % (0-3) Neutrophils # (Auto) 6.5 x10^3/uL (1.8-7.7) Lymphocytes # (Auto) 1.0 x10^3/uL (1.0-4.8) Monocytes # (Auto) 0.8 x10^3/uL (0.0-1.1) Eosinophils # (Auto) 0.5 x10^3/uL (0.0-0.7) Basophils # (Auto) 0.0 x10^3/uL (0.0-0.2) Sodium Level 143 mmol/L (136-145) Potassium Level 3.8 mmol/L (3.5-5.1) Chloride Level 105 mmol/L (98-107) Carbon Dioxide Level 30 mmol/L (21-32) Anion Gap 8 (6-14) Blood Urea Nitrogen 11 mg/dL (8-26) Creatinine 1.2 mg/dL (0.7-1.3) Estimated GFR (Cockcroft-Gault) 59.5 Glucose Level 107 mg/dL (70-99) H Calcium Level 8.1 mg/dL (8.5-10.1) L Laboratory Tests 04/23/20 05:05 Laboratory Tests 04/23/20 05:05 Medications: Current Medications Medications (Trade) Dose Ordered Sig/Renata Start Time Stop Time Status Last Admin Dose Admin Acetaminophen (Tylenol) 650 mg PRN Q4HRS PRN 04/22/20 16:30 Albuterol Sulfate (Ventolin Neb Soln) 2.5 mg PRN Q4HRS PRN 04/22/20 16:30 Bupropion HCl (Wellbutrin Sr) 150 mg DAILY 04/23/20 09:00 04/23/20 10:23 150 MG Citalopram Hydrobromide (CeleXA) 40 mg DAILY 04/23/20 09:00 04/23/20 10:24 40 MG Diphenhydramine HCl (Benadryl) 25 mg PRN Q4HRS PRN 04/22/20 16:30 Docusate Sodium (Colace) 100 mg BID 04/22/20 21:00 04/23/20 10:23 100 MG Enoxaparin Sodium (Lovenox 40mg Syringe) 40 mg Q24H 04/22/20 21:00 Fish Oil (Fish Oil) 1,000 mg BID 04/22/20 21:00 04/23/20 10:24 1,000 MG Gabapentin (Neurontin) 200 mg TID 04/22/20 21:00 04/23/20 15:09 200 MG Guaifenesin (Robitussin) 100 mg PRN QID PRN 04/22/20 17:15 Ipratropium [place] (Atrovent) 2.5 mg PRN Q4HRS PRN 04/22/20 17:15 Lactobacillus Rhamnosus (Culturelle) 1 cap BID 04/23/20 21:00 Levofloxacin/ Dextrose 50 ml @ 33.333 mls/ hr Q24H 04/23/20 13:00 04/23/20 15:10 33.333 MLS/HR Levothyroxine Sodium (Synthroid) 25 mcg HS 04/22/20 21:00 04/22/20 20:22 25 MCG Lorazepam (Ativan) 0.5 mg PRN BID PRN 04/22/20 17:15 Magnesium Hydroxide (Milk Of Magnesia) 2,400 mg PRN DAILY PRN 04/22/20 17:15 Ondansetron HCl (Zofran) 4 mg PRN Q4HRS PRN 04/22/20 16:30 Polyethylene Glycol (miraLAX PACKET) 17 gm PRN DAILY PRN 04/22/20 17:15 Risperidone (RisperDAL) 1 mg BID 04/22/20 21:00 04/23/20 10:25 1 MG Sertraline HCl (Zoloft) 50 mg DAILY 04/23/20 09:00 04/23/20 10:24 50 MG Simvastatin (Zocor) 20 mg QHS 04/22/20 21:00 04/22/20 20:23 20 MG Sodium Chloride 1,000 ml @ 75 mls/hr [id number] 04/22/20 14:37 04/23/20 14:36 DC 04/23/20 02:01 75 MLS/HR Tamsulosin HCl (Flomax) 0.4 mg HS 04/22/20 21:00 04/22/20 20:22 0.4 MG Physical Exam: Mental Status Exam: Elderly gentleman appears as a stated age Uncooperative and dysphoric Disoriented Thought processes disorganized Refused to answer to auditory or visual hallucinations. He is less paranoid. Denies suicidal or homicidal thoughts. Mood is improving Affect is improving Insight is fair Judgment is fair Impulse control is fair Attention span and concentration better Recent and remote memory better Physical Exam: Refer to Physician's note. SCOUT: No focal deficit MSK: No EPS, TDK, or abnormal involuntary movements Diagnosis: Paranoid schizophrenia Schizoaffective disorder by history Acute delirium likely mixed hyperactive and hypoactive, multifactorial Assessment: He is a 70-year-old gentleman resident of a group home facility with prior diagnoses of schizophrenia spectrum disorder. He is delirious and with decompensated psychosis requiring to restart his medications. He can be restarted on risperidone and Celexa which needs to be replaced with Zoloft which is safer than Celexa and elderly population. Due to ongoing psychosis would avoid bupropion at this point. Today he is demonstrating considerable improvement with the start of antipsychotics. Linear and not as irritable. Plan: Continue risperidone 1 mg twice daily for psychosis. Risperidone would also help in resolution of delirium. Collateral information would help with a longer treatment course and baseline s tatus of psychosis and mental status. Risk, benefits, alternatives are explained. Monitor closely for psychosis, symptomatology, safety, and adverse drug reaction. Will adjust medications accordingly. Thank you for involving inpatient care LUCILLE BUSBY MD Apr 23, 2020 17:29
--- NOTE | 2020-04-23 17:37 | NUR ---
LAURA following. Spoke with RN and reviewed chart. Pt from LTC at [facility] in [place]. Pt on room air. Psychiatric consult. COVID huong. LAURA following. Addendum: 04/24/20 at 0958 by BRIAN SANCHEZ Pt transferred to [facility] to follow.
--- NOTE | 2020-04-23 18:07 | NUR ---
Pt transferring to room 206. Report called to Priti.
[2020-04-23 18:30] VITALS: BP 159/101
[2020-04-23 19:30] VITALS: BP 176/99
[2020-04-23] MEDS: TAMSULOSIN 0.4 MG CAP.ER.24H. PO SCH (20:41)
[2020-04-23] MEDS: LEVOTHYROXINE 25 MCG TABLET. PO SCH (20:41)
[2020-04-23] MEDS: SIMVASTATIN 20 MG TABLET PO SCH (20:42)
[2020-04-23] MEDS: ENOXAPARIN 40 MG/0.4 ML SYRINGE. SQ SCH (20:42)
[2020-04-23] MEDS: LACTOBACILLUS RHAMNOSUS GG 1 CAPSULE. PO SCH (20:45)
[2020-04-23 22:39] VITALS: BP 158/87
[2020-04-24 03:06] VITALS: BP 153/91
[2020-04-24 07:00] VITALS: BP 162/89
[2020-04-24] MEDS: buPROPion SR 150 MG TABLET.SA PO SCH (08:36)
[2020-04-24] MEDS: DOCUSATE SODIUM 100 MG CAPSULE. PO SCH (08:36)
[2020-04-24] MEDS: SERTRALINE 50 MG TABLET. PO SCH (08:36)
[2020-04-24] MEDS: GABAPENTIN 100 MG CAPSULE. PO SCH ×2 (08:36→12:19)
[2020-04-24] MEDS: risperiDONE 1 MG TABLET. PO SCH ×2 (08:36→08:38)
[2020-04-24] MEDS: CITALOPRAM 20 MG TABLET. PO SCH (08:36)
[2020-04-24] MEDS: OMEGA-3 FATTY ACIDS/FISH OIL 1,000 MG CAPSULE. PO SCH (08:36)
[2020-04-24] MEDS: LACTOBACILLUS RHAMNOSUS GG 1 CAPSULE. PO SCH (08:36)
--- NOTE | 2020-04-24 10:35 | PDOC ---
[employer] PROGRESS NOTE Date of Service DOS: DATE: 04/24/20 TIME: 10:25 Chief Complaint Chief Complaint A/P: Acute encephalopathy - likely metabolic with medication and toxic due to UTI. will treat empirically and f/u urine culture. UDS interstingly negative despite scheduled outpatient ativan dosing, would suspect benzos to be found in urine. 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 Discussed with embedded case manager and RN. Pt seen and examined. Resting in bed, NAD. 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 EMS noted pinpoint pupils on arrival, ems states administering 4mg intranasal narcan. Per nursing staff he took his morning medications at 8 am that included, resperidal, lorazepam, citalopram, and buproprion. Labs with no significant findings save for positive leukocyte esterase and pos itive nitrates in his urine. ABG with pH 7.38, PCO2 47, PO2 65 on room air. INR 1, PTT 29, TSH 1.85, albumin 3.2, mag 2.3, lactate 0.7, troponin 0, WBC 6.8, Hb 13.1, platelets 220, NA 138, K3.9, BUN 13, CR 1.1, glucose 121, LFTs within normal limits. UDS negative CT head and chest x-ray with no acute abnormalities EKG with rate 90 bpm, normal sinus rhythm, no ST segment elevation, no ectopy, normal conduction On my interview he is asleep but easily aroused. He knows he is in the hospital and is only oriented to person. He is asking why he is here. Asking if he can have something to eat. He does not recall vomiting. He denies any cough shortness of breath or chest pain. He does note some pain on initiating urination. When asked about advanced directives and power of immigration attorney he notes he has a sister who lives in [place] but does not think the loss they are applying the [facility]. Due to concerns for COVID-19 nasal PCR swab was obtained in the ED. Admitted for further treatment. COVID 19 negative He is wondering why he is here. Afebrile. Awaiting urine culture. He does feel better. He is in good spirits. He has refused some of his medications but is amenable to taking them. Easily redirected. Oriented to person only currently. Vitals/I&O Vitals/I&O: Vital Signs Date Time Temp Pulse Resp B/P (MAP) Pulse Ox O2 Delivery O2 Flow Rate FiO2 04/24/20 07:00 98.3 91 16 162/89 (113) 96 Room Air 98.3 I & O 04/23/20 04/23/20 04/24/20 15:00 23:00 07:00 Intake Total 680 ml 420 ml 300 ml Output Total 250 ml 700 ml Balance 680 ml 170 ml -400 ml Physical Exam General: Alert, Cooperative, No acute distress, Other (Drowsy) Lungs: Clear, Crackles, Other Abdomen: Normal bowel sounds, Soft, No tenderness, No hepatosplenomegaly, No masses Extremities: No clubbing, No cyanosis, No edema, Normal pulses, No tendern ess/swelling Skin: No rashes, No breakdown, No significant lesion Review of Systems Review of Systems: Pt denies pain, pt denies weakness Assessment and Plan Assessmemt and Plan Problems Medical Problems: (1) Accidental drug overdose Status: Acute (2) AMS (altered mental status) Status: Acute (3) Person under investigation for COVID-19 Status: Acute (4) UTI (urinary tract infection) Status: Acute Assessment: UTI Acute encephalopathy Accidental drug overdose COVID neg as of 04/24/20 Plan: Switch to PO Levaquin Home meds DVT prophylaxis Full code Hope to discharge to long-term care today Comment Review of Relevant I have reviewed the following items alberto (where applicable) has been applied. Medications: Current Medications Medications (Trade) Dose Ordered Sig/Renata Route PRN Reason Start Time Stop Time Status Last Admin Dose Admin Levofloxacin/ Dextrose 50 ml @ 33.333 mls/ hr Q24H IV 04/23/20 13:00 04/23/20 15:10 Lactobacillus Rhamnosus (Culturelle) 1 cap BID PO 04/23/20 21:00 04/24/20 08:36 Justifications for Admission Other Justification SARIAH ORTEGA III DO Apr 24, 2020 10:35
--- NOTE | 2020-04-24 10:39 | SNU/HH DC ---
DISCHARGE ORDERS DISCHARGE INFORMATION: FINAL DIAGNOSIS Problems Medical Problems: (1) Accidental drug overdose Status: Acute (2) AMS (altered mental status) Status: Acute (3) Person under investigation for COVID-19 Status: Acute (4) UTI (urinary tract infection) Status: Acute CONDITION ON DISCHARGE: Stable CODE STATUS: Code Status: Full JAIL: SNF STAY <30 DAYS: No HOSPICE: HOSPICE: No HOSPICE EVAL & TREAT: No POST DISCHARGE ORDERS: ACTIVITY ORDERS: Activity as tolerated DIET AFTER DISCHARGE: Cardiac DISCHARGE MEDICATIONS: Home Meds Reported Medications Guaifenesin (TUSSIN) 100 Mg/5 Ml Liquid, 5 ML PO PRN QID PRN for COUGH for 10 Days, #200 ML 0 Refills 04/22/20 Polyethylene Glycol 3350 (MIRALAX) 17 Gm Powd.pack, 1 PACKET PO PRN DAILY PRN for CONSTIPATION for 2 Days, PACKET 0 Refills dissolve in water 04/22/20 Ipratropium [place] (IPRATROPIUM BROMIDE) 0.2 Mg/1 Ml Solution, 1 VIAL NEB PRN Q4HRS PRN for SHORTNESS OF BREATH, #300 ML 5 Refills 04/22/20 Tamsulosin Hcl (FLOMAX) 0.4 Mg Cap.er.24h, 1 CAP PO HS for retention, #30 CAP 11 Refills 04/22/20 Amantadine Hcl (AMANTADINE) 100 Mg Tablet, 1 TAB PO BID for extrapyramidal & movement d/o, #60 TAB 1 Refill 04/22/20 Citalopram Hydrobromide (CELEXA) 40 Mg Tablet, 1 TAB PO DAILY for depression, #30 TAB 1 Refill 04/22/20 Acetaminophen (TYLENOL) 325 Mg Tablet, 2 TAB PO PRN Q6HRS PRN for PAIN, #30 TAB 09/10/17 Simvastatin (SIMVASTATIN) 20 Mg Tablet, 1 TAB PO QHS, #30 TAB 5 Refills 09/10/17 Risperidone (RISPERIDONE) 3 Mg Tablet, 1 TAB PO BID, #60 TAB 2 Refills 09/10/17 Magnesium Hydroxide (MILK OF MAGNESIA) 400 Mg/5 Ml Oral.susp, 400 MG PO DAILY PRN for CONSTIPATION, MISC 09/10/17 Lorazepam (LORAZEPAM) 0.5 Mg Tablet, 1 TAB PO BID, #60 TAB 09/10/17 Levothyroxine Sodium (LEVOTHYROXINE SODIUM) 25 Mcg Tablet, 1 TAB PO HS, #30 TAB 5 Refills 09/10/17 Gabapentin (GABAPENTIN ) 100 Mg Capsule, 200 MG PO TID, CAP 09/10/17 Hart-3 Fatty Acids/Fish Oil (FISH OIL 1,000 MG CAPSULE) 1 Each Capsule, 1 EACH PO BID, CAP 09/10/17 Docusate Sodium (DOCUSATE SODIUM) 250 Mg Capsule, 250 MG PO BID, CAP 09/10/17 Bupropion Hcl (BUPROPION HCL SR) 150 Mg Tablet.er, 150 MG PO DAILY, TAB.SR 09/10/17 Discontinued Reported Medications Citalopram Hydrobromide (CITALOPRAM HBR) 20 Mg Tablet, 1 TAB PO DAILY, #30 TAB 5 Refills 09/10/17 SARIAH ORTEGA III DO Apr 24, 2020 10:39
[2020-04-24 11:00] VITALS: BP 151/79
[2020-04-24] MEDS ORDERED: LEVO500T8 PO (11:12)
[2020-04-24] MEDS ORDERED: DEXTROSE 50% 25 GM / 50ML DISP.SYRIN. IV PRN (12:15)
--- NOTE | 2020-04-24 13:13 | NUR ---
Discharge Note: MAYDA LEE MESA Discharge instructions and discharge home medications reviewed with Patient and a copy given. All questions have been answered and understanding verbalized. The following instructions and handouts were given: levofloxacin Patient discharged to [facility] via wheelchair.
[2020-04-24] MEDS ORDERED: INSULIN LISPRO 300 UNITS/3 ML VIAL. SQ SCH (17:00)
[2020-04-24] MEDS ORDERED: INSULIN GLARGINE SYRINGE. SQ SCH (21:00)
== END 2020-04-24 13:15 | DRG 917 ==
LOC: ER 11:20 → 6 SOUTH 14:00 → 2 NORTH 04-23 18:26
PROVIDERS: ADMIT Internal Medicine; ATTEND Internal Medicine
DX: T50.901A Poisoning by unspecified drugs, medicaments and biological substances, accidental (unintentional), initial encounter (principal); G92 Toxic encephalopathy; E44.0 Moderate protein-calorie malnutrition; F20.0 Paranoid schizophrenia; N39.0 Urinary tract infection, site not specified; G25.9 Extrapyramidal and movement disorder, unspecified; E78.5 Hyperlipidemia, unspecified; E03.9 Hypothyroidism, unspecified; E78.00 Pure hypercholesterolemia, unspecified; I10 Essential (primary) hypertension; J44.9 Chronic obstructive pulmonary disease, unspecified; Z20.828 Contact with and (suspected) exposure to other viral communicable diseases; Z88.0 Allergy status to penicillin; Z68.26 Body mass index [BMI] 26.0-26.9, adult; K59.00 Constipation, unspecified; Y92.89 Other specified places as the place of occurrence of the external cause
CPT/HCPCS: 36415; 36600; 70450; 71045; 80048; 80053; 80307; 81001; 82805; 83605; 83735; 83880; 84145; 84439; 84443; 84484; 85025; 85610; 85730; 86140; 87040; 87077; 87086; 87186; 93005; 96365; 96366; 99285; J1650; J1956; J7030; P9612; G0378; U0003-CS